=== PATIENT | male | born 1995 | race Caucasian/White ===

== ENCOUNTER 2020-11-10 11:11 | Emergency (ER) | payer BC ==
[2020-11-10] MEDS ORDERED: Sodium Chloride 0.9% 1000 ML 1,000 ML IV STA (11:21)
[2020-11-10] MEDS ORDERED: Sodium Chloride 0.9% 1000 ML 1,000 ML ONE (11:27)
[2020-11-10 11:45] LABS: Absolute Neutrophil Ct (ANC) 8.59 (1.4-6.9); BASOPHIL % 0.1 % (0.0-0.4); Basophil (Absolute #) 0.01 (0-0.4); Eosinophil % 0.1 % (0.00-5.0); Eosinophil (Absolute #) 0.01 (0-0.5); Hematocrit 47.9 % (42-50); Hemoglobin 16.6 gm/dl (12.5-18.0); Lymphocyte (Absolute #) 1.02 (1.0-4.6); Lymphocytes % 9.6 % (24.0-44.0); Mean Cell Volume 88.2 fl (78-100); Mean Corpuscular Hemoglobin 30.6 pg (26-32); Mean Corpuscular Hgb Concent. 34.7 g/dl (32-36); Mean Platelet Volume 9.5 fl (7.5-11.0); Monocyte (Absolute #) 1.01 (0.0-1.3); Monocytes % 9.5 % (0.0-12.0); Neutrophil % 80.7 % (36.0-66.0); Platelet Count 278 K/mm3 (150-450); Red Blood Count 5.43 M/mm3 (4.1-5.6); Red Cell Distribution Width 11.9 % (11.5-14.0); White Blood Count 10.6 K/mm3 (4.0-10.5)
[2020-11-10 11:51] LABS: Appearance CLEAR (CLEAR); Bilirubin NEGATIVE (NEGATIVE); Blood SMALL Ery/ul (0-5); Glucose NEGATIVE (NEGATIVE); Ketones NEGATIVE (NEGATIVE); Leukocyte Esterase NEGATIVE (NEGATIVE); Nitrite NEGATIVE (NEGATIVE); Protein,Urine Dip NEGATIVE (Negative); Specific Gravity 1.006 (1.005-1.025); Urobilinogen NEGATIVE mg/dL (0-1)
[2020-11-10 11:57] LABS: ALBUMIN 4.8 g/dL (3.5-5.0); ALKALINE PHOSPHATASE 82 U/L (38-126); AMYLASE 56 U/L (30-110); ANION GAP 11.4 MEQ/L (5-15); BLOOD UREA NITROGEN 10 mg/dL (9-20); CHLORIDE 99 mmol/L (98-107); Calcium 10.2 mg/dL (8.4-10.2); Carbon Dioxide 31 mmol/L (22-30); Creatinine 1 0.77 mg/dL (0.66-1.25); EST GLOMERULAR FILTRATION RATE > 60.0 ML/MIN; Glucose 106 mg/dL (74-106); LIPASE 37 U/L (23-300); Potassium 3.4 mmol/L (3.5-5.1); SGOT/AST 27 U/L (17-59); SGPT/ALT 23 U/L (0-50); SODIUM 137 mmol/L (137-145)
--- NOTE | 2020-11-10 12:12 | ERPHSYRPT ---
- History of Present Illness Time Seen by Provider: 11/10/20 12:09 Historian: patient Exam Limitations: no limitations Patient Subjective Stated Complaint: abd pain Triage Nursing Assessment: pt to ED c/o RLQ pain x 1 day, pain began yesterday morning and has been persistant since. reports new nausea today without emesis. no BMs x 2 days which is abnormal for pt. rates 5/10 sharp pain that is tender to palp and has rebound tenderness on assessment. BS active in all quads. Physician History: Patient is a 25-year-old male who presents with abdominal pain which started approximately 24 hours ago initial onset showed generalized abdominal pain now localized to the right lower quadrant increased pain with movement some nausea no vomiting or diarrhea no appetite he has had a low-grade fever of 99 8. No previous abdominal surgeries. Timing/Duration: hour(s) (24) Activities at Onset: none Quality: sharpness, stabbing Abdominal Pain Onset Location: generalized abdomen Pain Radiation: RLQ Severity of Pain-Max: moderate Severity of Pain-Current: moderate Modifying Factors: Improves With: movement Associated Symptoms: denies symptoms Previous symptoms: no prior history Allergies/Adverse Reactions: No Known Drug Allergies Allergy (Unverified 11/10/20 11:31) Home Medications: Multivitamin 1 tab PO DAILY 11/10/20 [History] Hx Tetanus, Diphtheria Vaccination/Date Given: Yes Hx Influenza Vaccination/Date Given: Yes Hx Pneumococcal Vaccination/Date Given: No Immunizations Up to Date: Yes Travel Risk - International Travel Have you traveled outside of the country in past 3 weeks: No - Coronavirus Screening Are you exhibiting any of the following symptoms?: No Close contact with a COVID-19 positive Pt in past 14-21 Days: No - Review of Systems Constitutional: Fever, No Chills Eyes: No Symptoms Ears, Nose, & Throat: No Symptoms Respiratory: No Cough, No Dyspnea Cardiac: No Chest Pain, No Edema, No Syncope Abdominal/Gastrointestinal: Abdominal Pain, Nausea, Appetite Changes, No Vomiting, No Diarrhea Genitourinary Symptoms: No Dysuria Musculoskeletal: No Back Pain, No Neck Pain Skin: No Rash Neurological: No Dizziness, No Focal Weakness, No Sensory Changes Psychological: No Symptoms Endocrine: No Symptoms All Other Systems: Reviewed and Negative - Past Medical History Pertinent Past Medical History: No - Past Surgical History Past Surgical History: No - Social History Smoking Status: Never smoker Exposure to second hand smoke: No Drug Use: none Patient Lives Alone: No - Nursing Vital Signs Nursing Vital Signs: Pain Scale Pain Intensity 5 - Physical Exam General Appearance: mild distress, alert Eye Exam: PERRL/EOMI, eyes nml inspection Ears, Nose, Throat Exam: normal ENT inspection, pharynx normal, moist mucous membranes Neck Exam: normal inspection, non-tender, supple, full range of motion Respiratory Exam: normal breath sounds, lungs clear, No respiratory distress Cardiovascular Exam: regular rate/rhythm, normal heart sounds Gastrointestinal/Abdomen Exam: tenderness, guarding, rebound, No mass Male Genitalia Exam: normal genitalia Back Exam: normal inspection, normal range of motion, No CVA tenderness, No vertebral tenderness Extremity Exam: normal inspection, normal range of motion, pelvis stable Neurologic Exam: alert, oriented x 3, cooperative, normal mood/affect, nml cerebellar function, sensation nml, No motor deficits Skin Exam: normal color, warm, dry SpO2 Interpretation: normal O2 Delivery: Room Air - Course Nursing assessment & vital signs reviewed: Yes - Radiology Exams Chest X-ray Interpretation: Interpreted by me, Negative - CT Exams Abdomen/Pelvis CT Interpretation: Negative, Tele-radiologist Report Ordered Tests: Active Orders 24 hr Category Date Time Status IV Insertion STAT Care 11/10/20 11:21 Active ABDOMEN AND PELVIS W CONTRAST [CT] Stat Exams 11/10/20 11:21 Taken CHEST 1 VIEW (PORTABLE) Stat Exams 11/10/20 11:21 Taken AMYLASE Stat Lab 11/10/20 11:40 Completed CBC W DIFF Stat Lab 11/10/20 11:40 Completed CMP Stat Lab 11/10/20 11:40 Completed LIPASE Stat Lab 11/10/20 11:40 Completed Lactic Acid Stat Lab 11/10/20 11:35 Completed UA W/RFX UR CULTURE Stat Lab 11/10/20 11:34 Completed Medication Summary Discontinued Medications Generic Name Dose Route Start Last Admin Trade Name Freq PRN Reason Stop Dose Admin Sodium Chloride 1,000 mls @ 999 mls/hr 11/10/20 11:21 11/10/20 11:29 Sodium Chloride 0.9% 1000 Ml IV 11/10/20 12:21 999 mls/hr .Q1H1M STA Administration Sodium Chloride Confirm 11/10/20 11:27 Sodium Chloride 0.9% 1000 Ml Administered 11/10/20 11:28 Dose 1,000 mls @ ud .ROUTE .STK-MED ONE Lab/Rad Data: Laboratory Result Diagrams 11/10/20 11:40 11/10/20 11:40 Laboratory Results 11/10/20 11/10/20 11/10/20 Range/Units 11:40 11:40 11:35 WBC 10.6 H (4.0-10.5) K/mm3 RBC 5.43 (4.1-5.6) M/mm3 Hgb 16.6 (12.5-18.0) gm/dl Hct 47.9 (42-50) % MCV 88.2 (78-100) fl MCH 30.6 (26-32) pg MCHC 34.7 (32-36) g/dl RDW 11.9 (11.5-14.0) % Plt Count 278 (150-450) K/mm3 MPV 9.5 (7.5-11.0) fl Gran % 80.7 H (36.0-66.0) % Eos # (Auto) 0.01 (0-0.5) Absolute Lymphs (auto) 1.02 (1.0-4.6) Absolute Monos (auto) 1.01 (0.0-1.3) Lymphocytes % 9.6 L (24.0-44.0) % Monocytes % 9.5 (0.0-12.0) % Eosinophils % 0.1 (0.00-5.0) % Basophils % 0.1 (0.0-0.4) % Absolute Granulocytes 8.59 H (1.4-6.9) Basophils # 0.01 (0-0.4) Sodium 137 (137-145) mmol/L Potassium 3.4 L (3.5-5.1) mmol/L Chloride 99 (98-107) mmol/L Carbon Dioxide 31 H (22-30) mmol/L Anion Gap 11.4 (5-15) MEQ/L BUN 10 (9-20) mg/dL Creatinine 0.77 (0.66-1.25) mg/dL Estimated GFR > 60.0 ML/MIN Glucose 106 (74-106) mg/dL Lactic Acid 1.0 (0.4-2.0) Calcium 10.2 (8.4-10.2) mg/dL Total Bilirubin 0.80 (0.2-1.3) mg/dL AST 27 (17-59) U/L ALT 23 (0-50) U/L Alkaline Phosphatase 82 (38-126) U/L Serum Total Protein 8.0 (6.3-8.2) g/dL Albumin 4.8 (3.5-5.0) g/dL Amylase 56 (30-110) U/L Lipase 37 (23-300) U/L Urine Color (YELLOW) Urine Appearance (CLEAR) Urine pH (5-6) Ur Specific [place] (1.005-1.025) Urine Protein (Negative) Urine Ketones (NEGATIVE) Urine Blood (0-5) Servando/ul Urine Nitrite (NEGATIVE) Urine Bilirubin (NEGATIVE) Urine Urobilinogen (0-1) mg/dL Ur Leukocyte Esterase (NEGATIVE) Urine WBC (Auto) (0-5) /HPF Urine RBC (Auto) (0-2) /HPF U Epithel Cells (Auto) (FEW) /HPF Urine Bacteria (Auto) (NEGATIVE) /HPF Urine Culture Reflexed (NO) Urine Glucose (NEGATIVE) mg/dL 11/10/20 Range/Units 11:34 WBC (4.0-10.5) K/mm3 RBC (4.1-5.6) M/mm3 Hgb (12.5-18.0) gm/dl Hct (42-50) % MCV (78-100) fl MCH (26-32) pg MCHC (32-36) g/dl RDW (11.5-14.0) % Plt Count (150-450) K/mm3 MPV (7.5-11.0) fl Gran % (36.0-66.0) % Eos # (Auto) (0-0.5) Absolute Lymphs (auto) (1.0-4.6) Absolute Monos (auto) (0.0-1.3) Lymphocytes % (24.0-44.0) % Monocytes % (0.0-12.0) % Eosinophils % (0.00-5.0) % Basophils % (0.0-0.4) % Absolute Granulocytes (1.4-6.9) Basophils # (0-0.4) Sodium (137-145) mmol/L Potassium (3.5-5.1) mmol/L Chloride (98-107) mmol/L Carbon Dioxide (22-30) mmol/L Anion Gap (5-15) MEQ/L BUN (9-20) mg/dL Creatinine (0.66-1.25) mg/dL Estimated GFR ML/MIN Glucose (74-106) mg/dL Lactic Acid (0.4-2.0) Calcium (8.4-10.2) mg/dL Total Bilirubin (0.2-1.3) mg/dL AST (17-59) U/L ALT (0-50) U/L Alkaline Phosphatase (38-126) U/L Serum Total Protein (6.3-8.2) g/dL Albumin (3.5-5.0) g/dL Amylase (30-110) U/L Lipase (23-300) U/L Urine Color YELLOW (YELLOW) Urine Appearance CLEAR (CLEAR) Urine pH 8.0 (5-6) Ur Specific [place] 1.006 (1.005-1.025) Urine Protein NEGATIVE (Negative) Urine Ketones NEGATIVE (NEGATIVE) Urine Blood SMALL (0-5) Servando/ul Urine Nitrite NEGATIVE (NEGATIVE) Urine Bilirubin NEGATIVE (NEGATIVE) Urine Urobilinogen NEGATIVE (0-1) mg/dL Ur Leukocyte Esterase NEGATIVE (NEGATIVE) Urine WBC (Auto) NONE (0-5) /HPF Urine RBC (Auto) NONE (0-2) /HPF U Epithel Cells (Auto) NONE (FEW) /HPF Urine Bacteria (Auto) NONE (NEGATIVE) /HPF Urine Culture Reflexed NO (NO) Urine Glucose NEGATIVE (NEGATIVE) mg/dL - Progress Progress: unchanged Progress Note: 11/10/20 12:32 Work-up was negative for any acute intra-abdominal pathology at present he will be diagnosed as gastroenteritis and will be on clear liquids for 48 hours and was told to follow-up with pain continued. - Departure Departure Disposition: Home Clinical Impression: Abdominal pain Condition: Stable Critical Care Time: No Instructions: Acute Abdomen (Belly Pain), Adult (DC)
--- NOTE | 2020-11-10 20:17 | XRAY ---
Indication: Abdomen pain. Multiple contiguous axial images obtained through the abdomen and pelvis using 80 cc Isovue 370 contrast. Comparison: None Lung bases are clear. Heart is not enlarged. Noncontrasted stomach and bowel loops appear nonobstructed. Normal appendix. No free fluid/air. Remaining liver, gallbladder, pancreas, spleen, adrenal glands, kidneys, ureters, bladder, and aorta appear normal in CT appearance and attenuation. No pathologic retroperitoneal lymphadenopathy. Osseous structures intact. No ventral or inguinal hernias. Impression: Negative CT abdomen/pelvis with contrast exam. Comment: Preliminary interpretation was made by [facility]. No critical discrepancy.
--- NOTE | 2020-11-10 20:17 | XRAY ---
Indication: Pain. Comparison: None Portable chest demonstrates normal heart, lungs, and bony thorax.
== END 2020-11-10 12:42 | disposition home or self-care (01) ==
LOC: ED 11:11
DX: R10.31 Right lower quadrant pain (principal); R11.0 Nausea; K52.9 Noninfective gastroenteritis and colitis, unspecified
CPT/HCPCS: 36000; 36415; 71045; 74177; 80053; 81001; 82150; 83605; 83690; 85025; 96360; 99284

== ENCOUNTER 2025-01-19 13:54 | Emergency (ER) | payer BC ==
[2025-01-19 14:04] VITALS: RESP 18; TEMP 98.1
--- NOTE | 2025-01-19 14:30 | ERPHSYRPT ---
- History of Present Illness Historian: patient Exam Limitations: no limitations Patient Subjective Stated Complaint: PT states "For the past 12 hours I have had upper belly pain and I vomited three times today." Triage Nursing Assessment: Pt presented alert and oriented x 3, skin pwd. Pt ambulates with an upright steady gait, able to speak in clear full sentences. PT resting comfortably on the bed. Physician History: Patient has abdominal pain starting about 12 hours ago. It is in the epigastric area. It sharp and stabbing. He is thrown up 3 times. He has not had any diarrhea. He said no fever or chills. Nothing seems to make the symptoms better or worse. He says he does not feel much like eating. His appetite is decreased.He does not have any chest pain. He has no fever chills or infectious symptoms at this time. His pain has subsided quite a bit. He said it was sharp and quite intense for a while. He has been taking a lot of NSAIDs and wonders if it is possible ulcers or reflux.The pain has been somewhat persistent.There is a family history of Crohn's. He says that he does have some occasional discomfort in his bowels but is usually lower abdomen and bloating. He says this is more stabbing and sharp and it is in the upper abdomen. Activities at Onset: none Allergies/Adverse Reactions: No Known Drug Allergies Allergy (Verified 01/19/25 14:05) Home Medications: Multivitamin 1 tab PO DAILY 11/10/20 [History] Lisinopril 10 mg [Zestril 10 MG] 10 mg PO DAILY 01/19/25 [History] Hx Tetanus, Diphtheria Vaccination/Date Given: Yes Hx Influenza Vaccination/Date Given: No Hx Pneumococcal Vaccination/Date Given: No Immunizations Up to Date: No Travel Risk - International Travel Have you traveled outside of the country in past 3 weeks: No - Emerging Infectious Disease Are you exhibiting symptoms associated with any current EIDs: Yes Symptoms: Abdominal Pain - Review of Systems Constitutional: No Symptoms Eyes: No Symptoms Ears, Nose, & Throat: No Symptoms Genitourinary Symptoms: No Symptoms Musculoskeletal: No Symptoms All Other Systems: Reviewed and Negative - Past Medical History Pertinent Past Medical History: Yes Cardiac History: Hypertension - Past Surgical History Past Surgical History: No - Social History Smoking Status: Never smoker Exposure to second hand smoke: Yes Drug Use: none - Social Determinants of Health Will the patient participate in the screening: Declined to provide - Nursing Vital Signs Nursing Vital Signs: Initial Vital Signs Temperature 98.1 F 01/19/25 13:58 Pulse Rate 88 01/19/25 13:58 Respiratory Rate 18 01/19/25 13:58 Blood Pressure 137/80 01/19/25 13:58 O2 Sat by Pulse Oximetry 97 01/19/25 13:58 Pain Scale Pain Intensity 4 - Physical Exam General Appearance: no apparent distress Eye Exam: PERRL/EOMI Respiratory Exam: normal breath sounds, lungs clear, No chest tenderness Cardiovascular Exam: regular rate/rhythm, normal heart sounds Gastrointestinal/Abdomen Exam: soft, normal bowel sounds, No tenderness, No distention, No mass Extremity Exam: normal inspection, normal range of motion Neurologic Exam: alert, oriented x 3 Skin Exam: normal color, warm, dry SpO2: 97 - Course Nursing assessment & vital signs reviewed: Yes Ordered Tests: Active Orders 24 hr Category Date Time Status IV Insertion STAT Care 01/19/25 14:25 Active CBC W DIFF Stat Lab 01/19/25 14:35 Completed CMP Stat Lab 01/19/25 14:35 Completed LIPASE Stat Lab 01/19/25 14:35 Completed Medication Summary Discontinued Medications Generic Name Dose Route Start Last Admin Trade Name Larsq PRN Reason Stop Dose Admin Al Hydrox/Mg Hydrox/Simethicone Confirm 01/19/25 14:43 Mag Hydrox/Al Hydrox/Simeth 30 Ml Udcup Administered 01/19/25 14:44 Dose 30 ml .ROUTE .STK-MED ONE Sodium Chloride 1,000 mls @ 999 mls/hr 01/19/25 14:21 01/19/25 14:50 Sodium Chloride 0.9% 1000 Ml IV 01/19/25 15:21 999 mls/hr .Q1H1M STA Administration Sodium Chloride Confirm 01/19/25 14:43 Sodium Chloride 0.9% 1000 Ml Administered 01/19/25 14:44 Dose 1,000 mls @ ud .ROUTE .STK-MED ONE Lidocaine HCl Confirm 01/19/25 14:43 Lidocaine Hcl 2% Viscous 15 Ml Udcup Administered 01/19/25 14:44 Dose 15 ml .ROUTE .STK-MED ONE Magnesium Hydroxide 45 ml 01/19/25 14:21 01/19/25 14:46 Mag Hydrx/Alum Hyd/Simeth/Lido 45 Ml Bottle PO 01/19/25 14:22 45 ml STAT ONE Administration Lab/Rad Data: Laboratory Result Diagrams 01/19/25 14:35 01/19/25 14:35 Laboratory Results 01/19/25 01/19/25 Range/Units 14:35 14:35 WBC 15.0 H (4.23-9.07) x10^3/uL RBC 4.54 L (4.63-6.08) x10^6/uL Hgb 13.9 (13.7-17.5) g/dL Hct 39.7 L (40.1-51.0) % MCV 87.4 (79.0-92.2) fL MCH 30.6 (25.7-32.2) pg MCHC 35.0 (32.3-36.5) g/dL RDW 11.9 (11.6-14.4) % Plt Count 210 (163-337) x10^3/uL MPV 9.0 L (9.4-12.4) fL Gran % 92.5 H (34.0-67.9) % Immature Gran % (Auto) 0.4 (0.001-0.429) % Nucleat RBC Rel Count 0.0 (0.00-0.2) % Eos # (Auto) 0 L (0.04-0.54) x10^3/uL Immature Gran # (Auto) 0.06 H (0.001-0.031) x10^3u/L Absolute Lymphs (auto) 0.47 L (1.32-3.57) x10^3/uL Absolute Monos (auto) 0.58 (0.30-0.82) x10^3/uL Absolute Nucleated RBC 0.00 (0.00-0.012) x10^3u/L Lymphocytes % 3.1 L (21.8-53.1) % Monocytes % 3.9 L (5.3-12.2) % Eosinophils % 0.0 L (0.8-7.0) % Basophils % 0.1 L (0.2-1.2) % Absolute Granulocytes 13.85 H (1.78-5.38) x10^3/uL Basophils # 0.02 (0.01-0.08) x10^3/uL Sodium 136 (135-145) mmol/L Potassium 4.5 (3.5-5.1) mmol/L Chloride 98 (98-107) mmol/L Carbon Dioxide 28 (22-30) mmol/L Anion Gap 14.3 (5-15) MEQ/L BUN 17 (9-20) mg/dL Creatinine 0.60 L (0.66-1.25) mg/dL Estimated GFR 133.2 ML/MIN Glucose 110 H (74-106) mg/dL Calcium 9.8 (8.4-10.2) mg/dL Total Bilirubin 1.10 (0.2-1.3) mg/dL AST 23 (17-59) U/L ALT 16 (0-50) U/L Alkaline Phosphatase 64 (38-126) U/L Serum Total Protein 7.1 (6.3-8.2) g/dL Albumin 4.7 (3.5-5.0) g/dL Lipase 41 (23-300) U/L Slides for Path Review YES - Progress Progress: improved Progress Note: Patient got a liter of fluids. His abdominal pain was diminishing. His lab work all look good. His exam was benign. I do not think he needs any imaging at this time. On the differential was gastritis, gastroenteritis,Gallbladder disease.And appendicitis. I think it is gastritis. He did get a GI cocktail that did not help much. I think he just has abdominal pain in his stomach secondary to probably a viral infection. I am going to send him home with Ida. 01/19/25 15:36 - Departure Departure Disposition: Home Clinical Impression: Gastritis Condition: Stable Critical Care Time: No Referrals: DOCTOR,NO FAMILY [NON-STAFF PHY W/O PRIVILEGES, UNKNOWN] - Follow up/PCP as directed Instructions: Dyspepsia (DC)
[2025-01-19 14:39] LABS: Absolute Neutrophil Ct (ANC) 13.85 x10^3/uL (1.78-5.38); BASOPHIL % 0.1 % (0.2-1.2); Basophil (Absolute #) 0.02 x10^3/uL (0.01-0.08); Eosinophil (Absolute #) 0 x10^3/uL (0.04-0.54); Hematocrit 39.7 % (40.1-51.0); Hemoglobin 13.9 g/dL (13.7-17.5); IMMATURE GRAN # 0.06 x10^3u/L (0.001-0.031); IMMATURE GRAN % 0.4 % (0.001-0.429); Lymphocyte (Absolute #) 0.47 x10^3/uL (1.32-3.57); Lymphocytes % 3.1 % (21.8-53.1); Mean Cell Volume 87.4 fL (79.0-92.2); Mean Corpuscular Hemoglobin 30.6 pg (25.7-32.2); Monocyte (Absolute #) 0.58 x10^3/uL (0.30-0.82); Monocytes % 3.9 % (5.3-12.2); Neutrophil % 92.5 % (34.0-67.9); Platelet Count 210 x10^3/uL (163-337); Red Blood Count 4.54 x10^6/uL (4.63-6.08); Red Cell Distribution Width 11.9 % (11.6-14.4)
[2025-01-19] MEDS ORDERED: Sodium Chloride 0.9% 1000 ML 1,000 ML ONE (14:43)
[2025-01-19] MEDS ORDERED: MAALOX ES 30 ML UNIT DOSE ONE (14:43)
[2025-01-19] MEDS ORDERED: XYLOCAINE VISCOUS 2% 15 ML CUP ONE (14:43)
[2025-01-19] MEDS: GI COCKTAIL 45 ML (Maalox/Lidocaine) PO ONE (14:46)
[2025-01-19] MEDS: Sodium Chloride 0.9% 1000 ML 1,000 ML IV STA (14:50)
[2025-01-19 14:52] LABS: ALBUMIN 4.7 g/dL (3.5-5.0); ANION GAP 14.3 MEQ/L (5-15); BILIRUBIN,TOTAL 1.1 mg/dL (0.2-1.3); Calcium 9.8 mg/dL (8.4-10.2); Creatinine 1 0.6 mg/dL (0.66-1.25); EST GLOMERULAR FILTRATION RATE 133.2 ML/MIN; Potassium 4.5 mmol/L (3.5-5.1); Total Protein 7.1 g/dL (6.3-8.2)
[2025-01-19 15:28] LABS: Slide Review 1 YES
[2025-01-19 15:38] VITALS: O2SAT 97
[2025-01-19 15:43] VITALS: BP 121/65; PULSE 74
== END 2025-01-19 15:56 | disposition home or self-care (01) ==
LOC: ED 13:54
DX: K29.70 Gastritis, unspecified, without bleeding (principal); R10.13 Epigastric pain; R11.2 Nausea with vomiting, unspecified; Z79.899 Other long term (current) drug therapy
CPT/HCPCS: 36415; 80053; 83690; 85025; 99283; 99284; A9270-GY